=== PATIENT | male | born 1935 | race Caucasian/White ===

== ENCOUNTER 2018-10-23 07:54 | Emergency (ER) | payer MEDICARE ==
[~2018-10-23] VITALS: Ht 175.3 cm; Wt 67.3 kg
[2018-10-23] MEDS ORDERED: LIDOcaine 2% 10ml TOPICAL JELLY (Urojet) MM ONE (08:15)
[2018-10-23 09:30] VITALS: BP 131/61
[2018-10-23 09:41] LABS: CLARITY,URINE CLOUDY (Clear); COLOR,URINE RED (Yellow)
[2018-10-23 10:08] LABS: UA COLLECTION TYPE FOLEY CATH
[2018-10-23 10:11] LABS: BACTERIA,URINE FEW /HPF (Neg); MUCUS STRANDS NONE SEEN /LPF (Neg); RBC,URINE TNTC /HPF (0-2); SQUAMOUS EPITHELIAL CELL,UR NONE SEEN /LPF (FEW)
[2018-10-23 10:14] LABS: BASOPHILS % (AUTO) 0.4 % (0-1); EOSINOPHILS # (AUTO) 0.1 X10'3 (0-0.9); EOSINOPHILS % (AUTO) 1.3 % (0-6); HEMATOCRIT 32.4 % (42.0-52.0); LYMPHOCYTES # (AUTO) 1.6 X10'3 (1.1-4.8); LYMPHOCYTES % (AUTO) 24.6 % (21-51); MEAN CORPUSCULAR HEMOGLOBIN 31.6 PG (27.0-31.0); MEAN CORPUSCULAR HGB CONC 33.9 g/dL (33.0-36.5); MEAN CORPUSCULAR VOLUME 93.2 FL (78-98); MEAN PLATELET VOLUME 9.4 FL (7.4-10.4); MONOCYTES # (AUTO) 0.7 X10'3 (0-0.9); MONOCYTES % (AUTO) 10.6 % (2-12); NEUTROPHILS % (AUTO) 63.1 % (42-75); PLATELET COUNT 186 X10'3 (140-440); RED BLOOD COUNT 3.48 X10'6 (4.70-6.10); RED CELL DISTRIBUTION WIDTH 14.6 % (11.5-14.5); WHITE BLOOD COUNT 6.3 X10'3 (4.5-11.0)
[2018-10-23] MEDS ORDERED: CefTRIAXone 1000mg IM Kit (w/lidocaine diluent) IM ONE (10:25)
[2018-10-23] MEDS ORDERED: SULF1TAB49 PO (10:27)
== END 2018-10-23 11:38 | disposition home or self-care (01) ==
LOC: ER 07:56
DX: N30.01 Acute cystitis with hematuria (principal); N13.8 Other obstructive and reflux uropathy; I25.10 Atherosclerotic heart disease of native coronary artery without angina pectoris; I10 Essential (primary) hypertension; Z90.49 Acquired absence of other specified parts of digestive tract; Z95.1 Presence of aortocoronary bypass graft; Z98.890 Other specified postprocedural states; Z85.46 Personal history of malignant neoplasm of prostate
CPT/HCPCS: 36415; 51700; 81001; 85025; 85610; 87088; 96372; 99284; J0696; 51702

== ENCOUNTER 2018-10-25 00:45 | Emergency (ER) | payer MEDICARE ==
[~2018-10-25] VITALS: Ht 175.3 cm; Wt 67.3 kg
[~2018-10-25 00:45] MED LIST: SULF1TAB49 PO
[2018-10-25 01:38] VITALS: BP 147/73
== END 2018-10-25 01:40 | disposition home or self-care (01) ==
LOC: ER 00:46
DX: T83.038A Leakage of other urinary catheter, initial encounter (principal); T83.098A Other mechanical complication of other urinary catheter, initial encounter; R31.9 Hematuria, unspecified; I25.10 Atherosclerotic heart disease of native coronary artery without angina pectoris; I10 Essential (primary) hypertension; Z79.2 Long term (current) use of antibiotics; Z90.49 Acquired absence of other specified parts of digestive tract; Z98.890 Other specified postprocedural states; Z95.1 Presence of aortocoronary bypass graft; Z90.79 Acquired absence of other genital organ(s); Y84.6 Urinary catheterization as the cause of abnormal reaction of the patient, or of later complication, without mention of misadventure at the time of the procedure; Y92.89 Other specified places as the place of occurrence of the external cause
CPT/HCPCS: 51702; 99284

== ENCOUNTER 2019-06-01 13:38 | Emergency (ER) | payer MEDICARE ==
[~2019-06-01] VITALS: Ht 175.3 cm; Wt 71.0 kg
[2019-06-01 14:22] VITALS: BP 120/44
[2019-06-01] MEDS ORDERED: LIDOcaine 2% 10ml TOPICAL JELLY (Urojet) TP ONE (14:50)
[2019-06-01 16:34] LABS: CLARITY,URINE TURBID (Clear); COLOR,URINE RED (Yellow); UA COLLECTION TYPE FOLEY CATH
[2019-06-01 16:42] LABS: BACTERIA,URINE FEW /HPF (Neg); MUCUS STRANDS NONE SEEN /LPF (Neg); RBC,URINE TNTC /HPF (0-2); SQUAMOUS EPITHELIAL CELL,UR FEW /LPF (FEW)
== END 2019-06-01 17:00 | disposition home or self-care (01) ==
LOC: ER 13:39
DX: N13.9 Obstructive and reflux uropathy, unspecified (principal); R33.9 Retention of urine, unspecified; R31.9 Hematuria, unspecified; I10 Essential (primary) hypertension; Z95.1 Presence of aortocoronary bypass graft; Z85.9 Personal history of malignant neoplasm, unspecified; Z90.89 Acquired absence of other organs; Z72.89 Other problems related to lifestyle
CPT/HCPCS: 51702; 81001; 87088; 99284

== ENCOUNTER 2019-06-03 13:18 | Inpatient (IN) | payer MEDICARE ==
[~2019-06-03] VITALS: Ht 175.3 cm; Wt 66.0 kg
--- NOTE | 2019-06-03 15:14 | NUR ---
Requested that patient wait at 1445 til I could get a room available at 1515. Went out to find patient to bring patient back to room. Patient unable to be found in lobby or outside.
--- NOTE | 2019-06-03 16:30 | NUR ---
to ct via wc
[2019-06-03 17:00] LABS: BASOPHILS % (AUTO) 0.4 % (0-1); EOSINOPHILS # (AUTO) 0.1 X10'3 (0-0.9); EOSINOPHILS % (AUTO) 1.8 % (0-6); HEMATOCRIT 29.5 % (42.0-52.0); HEMOGLOBIN 9.7 g/dl (14.0-17.9); LYMPHOCYTES # (AUTO) 1.8 X10'3 (1.1-4.8); LYMPHOCYTES % (AUTO) 23.4 % (21-51); MEAN CORPUSCULAR HGB CONC 32.9 g/dL (33.0-36.5); MEAN CORPUSCULAR VOLUME 88.3 FL (78-98); MEAN PLATELET VOLUME 8.6 FL (7.4-10.4); MONOCYTES # (AUTO) 0.8 X10'3 (0-0.9); MONOCYTES % (AUTO) 10.8 % (2-12); NEUTROPHILS # (AUTO) 4.9 X10'3 (1.8-7.7); NEUTROPHILS % (AUTO) 63.6 % (42-75); PLATELET COUNT 257 X10'3 (140-440); RED BLOOD COUNT 3.35 X10'6 (4.70-6.10); WHITE BLOOD COUNT 7.7 X10'3 (4.5-11.0)
[2019-06-03 17:08] LABS: ALBUMIN 3.2 G/DL (3.4-5.0); ANION GAP 7 (8-16); BLOOD UREA NITROGEN 31 MG/DL (7-18); BUN/CREATININE RATIO 30.1 (5.4-32.0); CALCIUM 9.1 MG/DL (8.5-10.1); CHLORIDE 110 MMOL/L (99-107); CREATININE 1.03 MG/DL (0.60-1.10); GLUCOSE 112 MG/DL (70-104); POTASSIUM 4.2 MMOL/L (3.5-5.1); SODIUM 143 MMOL/L (135-145); TOTAL CARBON DIOXIDE 25.8 MMOL/L (24-32); eGFR 69 ML/MIN
[2019-06-03] MEDS ORDERED: iohexol 300mg/ml 100ml inj. ONE (17:12)
--- NOTE | 2019-06-03 17:20 | NUR ---
TO CTA VIA WC
[2019-06-03] MEDS ORDERED: NAPR-996 PO (19:35)
[2019-06-03] MEDS ORDERED: LISI40TA4 PO (19:35)
[2019-06-03] MEDS ORDERED: OMEP40CA13 PO (19:35)
[2019-06-03] MEDS ORDERED: DILT180C89 PO (19:35)
[2019-06-03] MEDS ORDERED: INDLA80C PO (19:35)
[2019-06-03] MEDS ORDERED: FAMO40TA8 PO (19:35)
[2019-06-03] MEDS ORDERED: ATOR40TA72 PO (19:35)
[2019-06-03] MEDS ORDERED: ASPI-1265 PO (19:37)
[2019-06-03] MEDS ORDERED: OSC500T PO (19:38)
[2019-06-03] MEDS ORDERED: ASCO-139 PO (19:43)
[2019-06-03] MEDS ORDERED: CHOL10006 PO (19:43)
[2019-06-03] MEDS ORDERED: iron PO (19:43)
[2019-06-03] MEDS ORDERED: magnesium 2GM in 50ml NS 50 ML IV PRN (20:00)
[2019-06-03] MEDS ORDERED: magnesium 4gm in 100ml NS 100 ML IV PRN (20:00)
[2019-06-03] MEDS ORDERED: ondansetron/PF 4mg/2ml inj IV PRN (20:00)
[2019-06-03] MEDS ORDERED: potassium CL 10mEq/100ml bag 100 ML IV PRN ×2 (20:00)
[2019-06-03] MEDS: normal saline 1000ml 1,000 ML IV SCH (20:15)
--- NOTE | 2019-06-03 20:39 | NUR ---
Called report to Sammie SWENSON on surgical floor, pt condition and treatment plan discussed, floor RN agrees to assume care of pt , pt transported by RN non-tele to floor.
[2019-06-03 21:00] VITALS: BP 121/36
[2019-06-03] MEDS: K and/or MAG REPLACEMENT MC SCH (21:00)
--- NOTE | 2019-06-03 21:30 | NUR ---
pt recently in ER with morgan cath placed & connected to leg bag; pt reports that he has had ureteral leaking since it was placed Addendum: 06/04/19 at 0123 by Brianna Dinero RN Amended: Links added.
[2019-06-03] MEDS ORDERED: FLU VACC QS2019-20 36MOS UP/PF 60 MCG/0.5 ML SYRINGE IMVAC ONE (21:50)
[2019-06-04] VITALS (18 sets, daily range): BP systolic 108–181; BP diastolic 52–81
[2019-06-04 05:12] LABS: BASOPHILS % (AUTO) 0.4 % (0-1); EOSINOPHILS # (AUTO) 0.1 X10'3 (0-0.9); EOSINOPHILS % (AUTO) 1.6 % (0-6); HEMATOCRIT 26.5 % (42.0-52.0); HEMOGLOBIN 8.9 g/dl (14.0-17.9); LYMPHOCYTES # (AUTO) 1.6 X10'3 (1.1-4.8); LYMPHOCYTES % (AUTO) 23.3 % (21-51); MEAN CORPUSCULAR HEMOGLOBIN 29.6 PG (27.0-31.0); MEAN CORPUSCULAR HGB CONC 33.8 g/dL (33.0-36.5); MEAN CORPUSCULAR VOLUME 87.6 FL (78-98); MEAN PLATELET VOLUME 8.8 FL (7.4-10.4); MONOCYTES % (AUTO) 13.9 % (2-12); NEUTROPHILS # (AUTO) 4.3 X10'3 (1.8-7.7); NEUTROPHILS % (AUTO) 60.8 % (42-75); PLATELET COUNT 229 X10'3 (140-440); RED BLOOD COUNT 3.02 X10'6 (4.70-6.10); RED CELL DISTRIBUTION WIDTH 13.7 % (11.5-14.5)
[2019-06-04 05:39] LABS: PARTIAL THROMBOPLASTIN TIME 29 SECONDS (22-32)
[2019-06-04 05:41] LABS: ALANINE AMINOTRANSFERASE 17 U/L (12-78); ALBUMIN 2.6 G/DL (3.4-5.0); ALBUMIN/GLOBULIN RATIO 0.8 (1.1-1.5); ALKALINE PHOSPHATASE 86 IU/L (46-116); ANION GAP 8 (8-16); ASPARTATE AMINO TRANSFERASE 21 U/L (10-37); BILIRUBIN,TOTAL 0.3 MG/DL (0.1-1.0); BLOOD UREA NITROGEN 24 MG/DL (7-18); BUN/CREATININE RATIO 25.5 (5.4-32.0); CALCIUM 8.5 MG/DL (8.5-10.1); CHLORIDE 112 MMOL/L (99-107); CREATININE 0.94 MG/DL (0.60-1.10); GLUCOSE 100 MG/DL (70-104); MAGNESIUM 1.6 MG/DL (1.5-2.4); POTASSIUM 3.9 MMOL/L (3.5-5.1); SODIUM 146 MMOL/L (135-145); TOTAL CARBON DIOXIDE 26.5 MMOL/L (24-32); TOTAL PROTEIN 5.9 G/DL (6.4-8.2); eGFR 77 ML/MIN
--- NOTE | 2019-06-04 06:40 | NUR ---
Patient in room [facility]. I have received report from MESSI Cbob and had the opportunity to ask questions and assume patient care.
[2019-06-04] MEDS: K and/or MAG REPLACEMENT MC SCH ×2 (07:04→20:00)
[2019-06-04] MEDS: propranolol LA 60 MG cap.SA.24H PO SCH (08:00)
[2019-06-04] MEDS: lisinopril 20mg tablet PO SCH (08:00)
[2019-06-04] MEDS: diltiazem CD 180mg cap (once-daily) PO SCH (08:00)
[2019-06-04] MEDS: famotidine 20mg tablet PO SCH (08:32)
[2019-06-04] MEDS: atorvastatin 20mg tablet PO SCH (08:33)
[2019-06-04] MEDS: pantoprazole 40mg Tablet.DR PO SCH (08:33)
[2019-06-04] MEDS ORDERED: FLU VACC QS2019-20 36MOS UP/PF 60 MCG/0.5 ML SYRINGE IMVAC ONE (10:00)
[2019-06-04] MEDS ORDERED: ondansetron/PF 4mg/2ml inj IV PRN (10:40)
[2019-06-04] MEDS ORDERED: meperidine/PF 25mg/ml syringe IV PRN ×3 (10:40)
[2019-06-04] MEDS ORDERED: morphine 2 MG/ML inj. syringe IV PRN ×2 (10:40→11:10)
[2019-06-04] MEDS ORDERED: ringers solution, lacted 1,000 ML IV SCH (10:40)
[2019-06-04] MEDS ORDERED: proCHLORperazine 10 MG/2 ml inj IV PRN (10:40)
[2019-06-04] MEDS ORDERED: morphine 4 MG/ML inj SYRINge IV PRN (10:40)
--- NOTE | 2019-06-04 11:15 | NUR ---
Dr Kellogg paged re:[id number]. No orders received other than con't to monitor. Reported also to PROPERTY MANAGEMENT INTERN, Kera, when gave report.
[2019-06-04] MEDS ORDERED: iohexol 300 MG/1 ML 50ml polymer ONE (13:31)
[2019-06-04] MEDS ORDERED: fentaNYL/PF 50MCG/1 ML 2ML syringe ONE (14:35)
[2019-06-04] MEDS ORDERED: midazolam 2 mg/2 ml injection ONE (14:35)
[2019-06-04] MEDS ORDERED: ondansetron/PF 4mg/2ml inj ONE (14:42)
[2019-06-04] MEDS ORDERED: LIDOcaine 2% (20mg/ml) 5ml vial ONE (14:42)
[2019-06-04] MEDS ORDERED: propofol inj 20 ML IV ONE (14:42)
--- NOTE | 2019-06-04 15:25 | NUR ---
Received from OR via SURGICAL BED , accompanied by Anesthesiologist DR MOULTON and report given by Anesthesiolgist. PT ACED ON O2 AND MONITOR, S/P CYSTOSCOPY AND CLOT EVCUATION, GENERAL ANESTH, PT HAS MOHAN CATH DRAINING CLEAR FLUID, DENIES ANY PAIN OR NAUSEA, ABD SOFT, WILL CONT TO ASSESS.
[2019-06-04] MEDS: normal saline 1000ml 1,000 ML IV SCH ×2 (15:59→18:46)
--- NOTE | 2019-06-04 16:15 | NUR ---
Report received from [facility] [employer] [employer].
--- NOTE | 2019-06-04 16:25 | NUR ---
Report called to receiving nurse. Transferred via SURGICAL BED TO ROOM 346B Belongings . Special Issues communicated to receiving nurse.
--- NOTE | 2019-06-04 18:30 | NUR ---
Problems reprioritized. Patient report given, questions answered & plan of care reviewed with MESSI Muir.
--- NOTE | 2019-06-04 18:30 | NUR ---
Patient in room [facility] 346B. I have received report from MESSI Mejia and had the opportunity to ask questions and assume patient care.
[2019-06-05] VITALS: BP 106/55
[2019-06-05 04:00] VITALS: BP 111/68
[2019-06-05 05:20] LABS: BASOPHILS % (AUTO) 0.1 % (0-1); EOSINOPHILS % (AUTO) 0 % (0-6); HEMATOCRIT 24.6 % (42.0-52.0); HEMOGLOBIN 8.4 g/dl (14.0-17.9); LYMPHOCYTES # (AUTO) 0.9 X10'3 (1.1-4.8); LYMPHOCYTES % (AUTO) 11.1 % (21-51); MEAN CORPUSCULAR HGB CONC 34.2 g/dL (33.0-36.5); MEAN CORPUSCULAR VOLUME 87.8 FL (78-98); MEAN PLATELET VOLUME 8.8 FL (7.4-10.4); MONOCYTES # (AUTO) 0.5 X10'3 (0-0.9); MONOCYTES % (AUTO) 6.3 % (2-12); NEUTROPHILS % (AUTO) 82.5 % (42-75); PLATELET COUNT 247 X10'3 (140-440); RED BLOOD COUNT 2.81 X10'6 (4.70-6.10); RED CELL DISTRIBUTION WIDTH 13.2 % (11.5-14.5); WHITE BLOOD COUNT 8.5 X10'3 (4.5-11.0)
[2019-06-05 05:43] LABS: ALANINE AMINOTRANSFERASE 17 U/L (12-78); ALBUMIN 2.3 G/DL (3.4-5.0); ALBUMIN/GLOBULIN RATIO 0.7 (1.1-1.5); ALKALINE PHOSPHATASE 85 IU/L (46-116); ANION GAP 8 (8-16); ASPARTATE AMINO TRANSFERASE 19 U/L (10-37); BILIRUBIN,TOTAL 0.3 MG/DL (0.1-1.0); BLOOD UREA NITROGEN 24 MG/DL (7-18); BUN/CREATININE RATIO 24.2 (5.4-32.0); CALCIUM 8.2 MG/DL (8.5-10.1); CHLORIDE 112 MMOL/L (99-107); CREATININE 0.99 MG/DL (0.60-1.10); GLUCOSE 188 MG/DL (70-104); MAGNESIUM 1.6 MG/DL (1.5-2.4); POTASSIUM 3.8 MMOL/L (3.5-5.1); SODIUM 147 MMOL/L (135-145); TOTAL CARBON DIOXIDE 26.8 MMOL/L (24-32); TOTAL PROTEIN 5.7 G/DL (6.4-8.2); eGFR 72 ML/MIN
--- NOTE | 2019-06-05 06:15 | NUR ---
Patient in room [facility] 346. I have received report from MESSI Muir and had the opportunity to ask questions and assume patient care.
--- NOTE | 2019-06-05 06:20 | NUR ---
Problems reprioritized. Patient report given, questions answered & plan of care reviewed with MESSI Mejia. Patient stable at shift change
[2019-06-05 06:30] VITALS: BP 111/59
[2019-06-05] MEDS: K and/or MAG REPLACEMENT MC SCH (07:18)
[2019-06-05] MEDS ORDERED: magnesium hydroxide 30ml (MOM) UD suspension PO PRN (07:25)
[2019-06-05] MEDS: lisinopril 20mg tablet PO SCH (10:01)
[2019-06-05] MEDS: diltiazem CD 180mg cap (once-daily) PO SCH (10:01)
[2019-06-05] MEDS: pantoprazole 40mg Tablet.DR PO SCH (10:01)
[2019-06-05] MEDS: famotidine 20mg tablet PO SCH (10:02)
[2019-06-05] MEDS: atorvastatin 20mg tablet PO SCH (10:02)
[2019-06-05] MEDS: propranolol LA 60 MG cap.SA.24H PO SCH (10:04)
[2019-06-05 11:00] VITALS: BP 130/65
--- NOTE | 2019-06-05 16:30 | NUR ---
DC inst provided to pt & pt's family. IV DC'd, tip intact. All belongings sent w/pt. WC to front lobby.
--- NOTE | 2019-06-08 14:11 | NUR ---
Case Management DC follow up: spoke to pt via telephone. Reports "doing fine". compliant w/cystocopy aftercare protocol. No issues noted. FC draining to gravity, no blood, no blood clots/pt always uses FC. Staying hydrated. Denies CP, emergent general pain, SOB, respiratory distress, NV, dizziness, syncope episodes, abd pain, bladder pain, ALMAGUER, blurry vision. no s/urinary retention, remains afebrile. Verbalizes understanding of medications and why prescribed. Taking as ordered, no ase noted r/t polypharmacy/new meds. verbalizes understanding of s/s that would warrant -/ER visit for evaluation. Acknowledges importance of scheduling/keeping appointments w/PCP/Dr Real Rendon/will call to schedule/referrals/specialists/Dr Lujan 06/13/2019. Needs met, questions answered at MT. No further questions at this time.
== END 2019-06-05 16:34 | disposition home health service (06) | DRG 667 ==
LOC: ER 13:21 → ED HOLD 19:59 → SUR 3N 20:50 → PACU 06-04 15:07 → SUR 3N 06-04 17:26
PROVIDERS: ADMIT Internal Medicine; ATTEND Internal Medicine
PROC: BW211ZZ Computerized Tomography (CT Scan) of Abdomen and Pelvis using Low Osmolar Contrast (ICD-10-PCS; 2019-06-03)
PROC: 0V508ZZ Destruction of Prostate, Via Natural or Artificial Opening Endoscopic (ICD-10-PCS; 2019-06-04)
PROC: 0TCB8ZZ Extirpation of Matter from Bladder, Via Natural or Artificial Opening Endoscopic (ICD-10-PCS; 2019-06-04)
PROC: 3E02340 Introduction of Influenza Vaccine into Muscle, Percutaneous Approach (ICD-10-PCS; 2019-06-04)
PROC: 0T5C8ZZ Destruction of Bladder Neck, Via Natural or Artificial Opening Endoscopic (ICD-10-PCS; principal; 2019-06-04 14:27)
DX: N30.41 Irradiation cystitis with hematuria (principal); K62.7 Radiation proctitis; I10 Essential (primary) hypertension; E78.5 Hyperlipidemia, unspecified; K21.9 Gastro-esophageal reflux disease without esophagitis; I25.10 Atherosclerotic heart disease of native coronary artery without angina pectoris; D64.9 Anemia, unspecified; C61 Malignant neoplasm of prostate; D49.4 Neoplasm of unspecified behavior of bladder; Z96.612 Presence of left artificial shoulder joint; Z96.611 Presence of right artificial shoulder joint; N32.89 Other specified disorders of bladder; Z66 Do not resuscitate; T50.8X5A Adverse effect of diagnostic agents, initial encounter; Z79.899 Other long term (current) drug therapy; Z79.82 Long term (current) use of aspirin; Z95.1 Presence of aortocoronary bypass graft; Z90.49 Acquired absence of other specified parts of digestive tract; Z90.79 Acquired absence of other genital organ(s); Z92.3 Personal history of irradiation; Y92.89 Other specified places as the place of occurrence of the external cause
CPT/HCPCS: 36415; 71045; 74177; 80048; 80053; 83735; 85025; 85610; 85730; 87081; 93005; 96374; 99285; A4618; G0378; J2001; J2250; J2270; J2405; J2704; J3010; J7030; Q2037; Q9967

== ENCOUNTER 2019-10-26 02:13 | Emergency (ER) | payer MEDICARE ==
[~2019-10-26] VITALS: Ht 175.3 cm; Wt 68.2 kg
[~2019-10-26 02:13] MED LIST changes: +ASCO-139 PO; +ATOR40TA72 PO; +CHOL10006 PO; +DILT180C89 PO; +INDLA80C PO; +LISI40TA4 PO; +OMEP40CA13 PO; +OSC500T PO; -SULF1TAB49 PO; +iron PO
[2019-10-26 02:28] VITALS: BP 119/53
== END 2019-10-26 04:42 | disposition home or self-care (01) ==
LOC: ER 02:13
DX: M79.672 Pain in left foot (principal); M79.89 Other specified soft tissue disorders; I25.10 Atherosclerotic heart disease of native coronary artery without angina pectoris; I10 Essential (primary) hypertension; Z85.9 Personal history of malignant neoplasm, unspecified; Z90.49 Acquired absence of other specified parts of digestive tract; Z98.890 Other specified postprocedural states; Z72.89 Other problems related to lifestyle; Z79.899 Other long term (current) drug therapy
CPT/HCPCS: 73630; 99283

== ENCOUNTER 2019-11-01 12:25 | Outpatient (CLI) | payer MEDICARE | END 2019-11-01 23:59 | disposition home or self-care (01) | LOC: VAS 12:25 | PROVIDERS: ATTEND Family Medicine | DX: Z86.718 Personal history of other venous thrombosis and embolism (principal) | CPT/HCPCS: 93971 ==

== ENCOUNTER 2022-07-18 18:06 | Emergency (ER) | payer MEDICARE ==
[~2022-07-18] VITALS: Ht 175.3 cm; Wt 65.9 kg
[~2022-07-18 18:06] MED LIST changes: -DILT180C89 PO; +LISI40TA13 PO; -LISI40TA4 PO; -OMEP40CA13 PO; +PANT-47 PO
[2022-07-18 19:53] VITALS: BP 129/80
== END 2022-07-18 19:54 | disposition home or self-care (01) ==
LOC: ER 18:07
DX: R19.4 Change in bowel habit (principal); I10 Essential (primary) hypertension; K21.9 Gastro-esophageal reflux disease without esophagitis
CPT/HCPCS: 99283

== ENCOUNTER 2022-12-11 09:44 | Emergency (ER) | payer MEDICARE ==
[~2022-12-11] VITALS: Ht 175.3 cm; Wt 64.1 kg
[2022-12-11 09:50] VITALS: BP 175/90; PULSE 84; RESP 18; TEMP 97.6; O2SAT 100
== END 2022-12-11 14:50 | disposition left against medical advice (07) ==
LOC: ER 09:45
DX: M54.9 Dorsalgia, unspecified (principal); Z53.21 Procedure and treatment not carried out due to patient leaving prior to being seen by health care provider
CPT/HCPCS: 99281